=== PATIENT | male | born 1950 | race Caucasian/White ===

== ENCOUNTER 2020-08-13 12:12 | Outpatient (CLI) | payer MEDICARE ==
[2020-08-13] MEDS ORDERED: AMLO-150 PO (13:23)
[2020-08-13] MEDS ORDERED: aspirin PO (13:23)
[2020-08-13] MEDS ORDERED: FINA5TAB4 PO (13:23)
[2020-08-13] MEDS ORDERED: ASCO100018 PO (13:23)
[2020-08-13] MEDS ORDERED: CLOP75TA PO (13:23)
[2020-08-13] MEDS ORDERED: [UNRECOGNIZED DRUG - OTHER] PO (13:23)
[2020-08-13] MEDS ORDERED: OMEP-110 PO (13:23)
[2020-08-13] MEDS ORDERED: ATOR40TA78 PO (13:23)
[2020-08-13] MEDS ORDERED: LISI40TA9 PO (13:23)
[2020-08-13] MEDS ORDERED: TAMS-11 PO (13:23)
[2020-08-13] MEDS ORDERED: CARV-39 PO (13:23)
== END 2020-08-13 23:59 | disposition home or self-care (01) ==
LOC: STAR 12:12
PROVIDERS: ATTEND Internal Medicine Gastroenterology
DX: Z01.818 Encounter for other preprocedural examination (principal); K22.70 Barrett's esophagus without dysplasia; R94.31 Abnormal electrocardiogram [ECG] [EKG]; I25.2 Old myocardial infarction
CPT/HCPCS: 36415; 80053; 93005

== ENCOUNTER 2020-08-21 09:08 | Day surgery (SDC) | payer MEDICARE ==
[2020-08-13 14:55] LABS: ALBUMIN 3.6 g/dL (3.4-5.0); ANION GAP 5 mmol/L (5-15); CALCIUM 9.3 mg/dL (8.5-10.1); CHLORIDE 107 mmol/L (98-107)
[2020-08-13 14:59] LABS: ALANINE AMINOTRANSFERASE 29 U/L (12-78); ALKALINE PHOSPHATASE 131 U/L (45-117); BILIRUBIN,TOTAL 1.3 mg/dL (0.2-1.0); CREATININE 0.82 mg/dL (0.7-1.3); TOTAL PROTEIN 6.8 g/dL (6.4-8.2)
[~2020-08-21] VITALS: Ht 182.9 cm; Wt 113.8 kg
[~2020-08-21 09:08] MED LIST: AMLO-150 PO; ASCO100018 PO; ATOR40TA78 PO; CARV-39 PO; CLOP75TA PO; FINA5TAB4 PO; LISI40TA9 PO; OMEP-110 PO; TAMS-11 PO; [UNRECOGNIZED DRUG - OTHER] PO; aspirin PO
[2020-08-21 09:36] VITALS: BP 131/88
[2020-08-21] MEDS ORDERED: CHLORHEXIDINE 15 ML UDC ONE (09:50)
[2020-08-21] MEDS ORDERED: LACTATED RINGERS 1,000 ML IV SCH (10:00)
[2020-08-21] MEDS ORDERED: CHLORHEXIDINE 15 ML UDC PO ONE (10:00)
[2020-08-21] MEDS ORDERED: PROPOFOL 50 ML ONE (10:51)
[2020-08-21] MEDS ORDERED: FENTANYL PF 100 MCG/2ML IV PRN (11:30)
[2020-08-21] MEDS ORDERED: hydrALAzine 20 MG/ML, 1ML IV PRN (11:30)
[2020-08-21] MEDS ORDERED: OXYcodone 5 MG/5 ML ORAL.SOL UDC PO PRN (11:30)
[2020-08-21] MEDS ORDERED: ONDANSETRON 2MG/ML, 2ML IVPush PRN (11:30)
[2020-08-21] MEDS ORDERED: MEPERIDINE/PF 25MG/0.5ML IVPush PRN (11:30)
[2020-08-21] MEDS ORDERED: ACETAMINOPHEN 325 MG TABLET PO PRN (11:30)
[2020-08-21] MEDS ORDERED: LABETALOL 5MG/ML, 20ML IV PRN (11:30)
== END 2020-08-21 13:50 | disposition home or self-care (01) ==
LOC: OUT 09:08
PROVIDERS: ATTEND Internal Medicine Gastroenterology
DX: K22.710 Barrett's esophagus with low grade dysplasia (principal); K44.9 Diaphragmatic hernia without obstruction or gangrene; I10 Essential (primary) hypertension; E78.5 Hyperlipidemia, unspecified; Z20.822 Contact with and (suspected) exposure to COVID-19; Z72.89 Other problems related to lifestyle; Z79.899 Other long term (current) drug therapy; Z98.890 Other specified postprocedural states
CPT/HCPCS: 43236; 43237; 43251; 88305; J2704; J7120; U0003; U0005; 36415; 80053; 93005